=== PATIENT | male | born 1980 | race Caucasian/White ===

== ENCOUNTER 2019-03-29 14:24 | Emergency (ER) | payer OTHER, MEDICAID, SELFPAY ==
[2019-03-29 14:26] VITALS: BP 138/90; PULSE 68; RESP 16; TEMP 36.9; O2SAT 96
--- NOTE | 2019-03-29 15:53 | PC.NURSE ---
small lacerations on tip of finger x 2. Soaking currently. Not suturable. No active bleeding. Tetnus is up to date.
[2019-03-29] MEDS: BACITRACIN OINT 0.9 GM PCKT 1 APPLIC TOP (16:05)
--- NOTE | 2019-03-29 18:04 | ED.WOUNDLAC ---
HPI - Wound/Laceration <GLEN Park - Last Filed: 03/29/19 18:08> General Chief Complaint: Wound/Laceration Stated Complaint: cut on thumb l hand,right hand index finger Time Seen by Provider: 03/29/19 15:18 Source: patient Mode of arrival: Ambulatory Limitations: no limitations History of Present Illness HPI narrative: The patient is a 38-year-old male nonsmoker with history of a nickel allergy who presents with chief complaint of lacerations on his left thumb and right index finger. 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 He denies any active bleeding, but states he had a hard time getting it to stop. His tetanus is up-to-date. He states that his laceration seem rather shallow. He states that he has full range of motion of all fingers Related Data Home Medications Medication Instructions Recorded Confirmed No Known Home Medications 03/29/19 03/29/19 Allergies Allergy/AdvReac Type Severity Reaction Status Date / Time nickel [NICKEL] Allergy Unknown Unverified 08/06/17 12:08 Review of Systems <GLEN Park - Last Filed: 03/29/19 18:08> Review of Systems Narrative: GENERAL: Denies chills, fatigue, malaise, fever, sweats. HEENT: Denies sinus pain, ear pain, sore throat, difficulty swallowing, dizziness. RESPIRATORY: Denies dyspnea, cough, wheezing, hemoptysis, sputum. CARDIOVASCULAR: Denies chest pain, palpitations, orthopnea, edema, GASTROINTESTINAL: Denies nausea, vomiting, abdominal pain, diarrhea, constipation, melena. : Denies dysuria, frequency, incontinence, hematuria, urinary retention. MUSCULOSKELETAL: denies weakness, joint pain, or bony pain SKIN: See HPI NEUROLOGIC: Denies weakness, headache, numbness, change in speech, confusion, seizures, incoordination. PSYCHIATRIC: No concerning psychosocial issues. 12 point review of systems is negative except for those stated above Patient History <GLEN Park - Last Filed: 03/29/19 18:08> Family History (Updated 01/12/16 @ 00:00 by Freedom Blair RN) Sister Age: 39 Thyroid trouble Exam <GLEN Park - Last Filed: 03/29/19 18:08> Narrative Exam Narrative: GENERAL: This is a well-nourished, well-developed patient, in no acute distress HEAD: Atraumatic. Normocephalic. No temporal or scalp tenderness. EYES: Pupils equal round and reactive. Extraocular motions intact. No scleral icterus. No injection or drainage. ENT: Nose without bleeding, purulent drainage or septal hematoma. Throat without erythema, tonsillar hypertrophy or exudate. Uvula midline. Airway patent. NECK: Trachea midline. No JVD or lymphadenopathy. Supple, nontender, no meningeal signs. CARDIOVASCULAR: Regular rate and rhythm RESPIRATORY: No cough. No increased respiratory effort. No accessory muscle use. EXTREMITIES: Radial pulses intact bilaterally. Full range of motion noted bilateral fingers. Able to extend and flex left thumb and right index finger against resistance Capillary refill less than 2 seconds all fingers. BACK: Nontender without deformity or crepitance. No flank tenderness. NEURO: AOx3. SKIN: 1 cm lacerations noted at tips of left thumb and right index finger. No active bleeding. Not full thickness. Initial Vital Signs Initial Vital Signs: Vital Signs Temperature 98.5 F 03/29/19 14:26 Pulse Rate 68 03/29/19 14:26 Respiratory Rate 16 03/29/19 14:26 Blood Pressure 138/90 03/29/19 14:26 Pulse Oximetry 96 03/29/19 14:26 <Vinh Witt DO - Last Filed: 03/29/19 18:13> Initial Vital Signs Initial Vital Signs: Vital Signs Temperature 98.5 F 03/29/19 14:26 Pulse Rate 68 03/29/19 14:26 Respiratory Rate 16 03/29/19 14:26 Blood Pressure 138/90 03/29/19 14:26 Pulse Oximetry 96 03/29/19 14:26 Course <GLEN Park - Last Filed: 03/29/19 18:08> Orders Ordered: Discontinued Medications Bacitracin (Bacitracin) 1 applic TOP NOW ONE Stop: 03/29/19 15:56 Last Admin: 03/29/19 16:05 Dose: 1 applic Documented by: ZULMA Vital Signs Vital signs: Vital Signs - 8 hr 03/29/19 14:26 Temperature 98.5 F Pulse Rate 68 Respiratory Rate 16 Blood Pressure 138/90 Pulse Oximetry 96 <Vinh Witt DO - Last Filed: 03/29/19 18:13> Orders Ordered: Discontinued Medications Bacitracin (Bacitracin) 1 applic TOP NOW ONE Stop: 03/29/19 15:56 Last Admin: 03/29/19 16:05 Dose: 1 applic Documented by: ZULMA Vital Signs Vital signs: Vital Signs - 8 hr 03/29/19 14:26 Temperature 98.5 F Pulse Rate 68 Respiratory Rate 16 Blood Pressure 138/90 Pulse Oximetry 96 MDM - Wound/Laceration <DUTCH Park- - Last Filed: 03/29/19 18:08> [facility] Narrative Medical decision making narrative: The patient is a 38-year-old male presents with a chief complaint of lacerations from a broken glass at work. His tetanus is up-to-date. His wound was cleansed with chlorhexidine and dressed by nursing. He does not need sutures or repair. Discussed at length monitoring for signs and symptoms of infection such as redness pus swelling etc. Patient has no questions or concerns upon discharge and states understanding of return precautions as well as follow-up care. Discharge Plan Departure Patient Disposition: Home Clinical Impression: Laceration Discharge Date/Time: 03/29/19 16:18 Instructions: DI for Minor Laceration Activity Restrictions/Additional Instructions: Please monitor your laceration for signs and symptoms of infection such as redness and pus. Please follow up with these occur. Please come back to emergency department for any acute concerns. Please follow up with primary care provider. Prescriptions: No Action No Known Home Medications RF: 0 Referrals: Richard Cortes MD [Primary Care Provider] - Stand Alone Forms: Work Release Note <Vinh Witt DO - Last Filed: 03/29/19 18:13> Sign Out Provider Sign Out Attestation: Dr Witt Co-Sign Statement: I was available for consultation during this patient's emergency department visit. This chart is signed by myself for administrative purposes only. I did not have direct contact with this patient during this visit. They were seen independently by the APC.
== END 2019-03-29 16:18 | disposition home or self-care (01) ==
PROVIDERS: Emergency Provider Nurse Practitioner Family; PCP Family Medicine
DX: S61.012A Laceration without foreign body of left thumb without damage to nail, initial encounter (principal); S61.210A Laceration without foreign body of right index finger without damage to nail, initial encounter; W25.XXXA Contact with sharp glass, initial encounter; Y99.0 Civilian activity done for income or pay
CPT/HCPCS: 99282; 99283

== ENCOUNTER 2020-12-04 08:53 | Emergency (ER) | payer OTHER, SELFPAY ==
[2020-12-04 09:12] VITALS: BP 130/94; PULSE 58; RESP 16; TEMP 36.2; O2SAT 97; BMI 40.6
--- NOTE | 2020-12-04 09:19 | ED.LOWEXIN ---
HPI - Extremity Injury (Lower) General Chief Complaint: Extremity Injury, Lower Stated Complaint: slipped fell on knee Time Seen by Provider: 12/04/20 09:11 Source: patient Mode of arrival: Ambulatory Limitations: no limitations History of Present Illness HPI Narrative: Patient is a 40-year-old male here for evaluation of a right knee injury. He states that approximately 1 week ago while at work he tripped over a mat falling forward landing on the front of his right knee. He has been ambulatory since then. He states that the discomfort has not gotten worse but also has not improved. He has no instability in the knee. No prior injuries. No other injuries reported from the event Related Data Home Medications Medication Instructions Recorded Confirmed No Known Home Medications 03/29/19 03/29/19 Allergies Allergy/AdvReac Type Severity Reaction Status Date / Time nickel [NICKEL] Allergy Unknown Unverified 08/06/17 12:08 Review of Systems Constitutional Constitutional: Reports system reviewed and no additional complaints, except as documented Musculoskeletal Musculoskeletal: Reports system reviewed and no additional complaints, except as documented Integumentary/Breasts Skin/Breast: Reports system reviewed and no additional complaints, except as documented Neurologic Neurologic: Reports system reviewed and no additional complaints, except as documented Hematologic/Lymphatic On Anticoagulants: No Patient History Medical History Healthy adult Family History (Updated 01/12/16 @ 00:00 by Freedom Blair RN) Sister Age: 40 Thyroid trouble Social History Smoking Status: Never smoker Smoking Status: Never smoker Substance Use Type: does not use Exam Initial Vital Signs Initial Vital Signs: Vital Signs Temperature 97.2 F L 12/04/20 09:12 Pulse Rate 58 L 12/04/20 09:12 Respiratory Rate 16 12/04/20 09:12 Blood Pressure 130/94 H 12/04/20 09:12 Pulse Oximetry 97 12/04/20 09:12 Const General: cooperative and healthy appearing HENMD Head: normal to inspection and normocephalic Cardio Pulses: dorsalis pedis present on the right Skin Other: Patient with an area of bruising on the inferior patellar portion medial aspect of the right proximal tibia Neuro General: patient alert, patient awake, patient oriented x3 and moves all extremities Extrem General: normal to inspection and capillary refill normal Other: ACL MCL PCL and LCL all intact with functional testing. Patient can do a straight leg raise. No tenderness over the quadriceps tendon and patellar tendon. He does have tenderness over the bruising of the anterior portion of the knee. Psych Appearance: grossly normal and well kempt Course Vital Signs Vital signs: Vital Signs - 8 hr 12/04/20 09:12 Temperature 97.2 F L Pulse Rate 58 L Respiratory Rate 16 Blood Pressure 130/94 H Pulse Oximetry 97 MDM - Extremity Injury (Lower) MDM Narrative Medical decision making narrative: Patient has been ambulatory for the past week. He does have bruising on the anterior portion of his knee and this does seem to be the area discomfort for him. I feel that we can hold on radiologic studies for now. I have low suspicion for major ligament damage. We did discuss conservative measures. He was given return precautions. He expressed understanding and agreement. Discharge Plan Departure Patient Disposition: Home Clinical Impression: Contusion of knee, right Instructions: DI for Contusion, How To Perform RICE (Rest, Ice, Compress, Elevate) Activity Restrictions/Additional Instructions: I have low suspicion for fracture given the fact that you been walking on your leg for the past week. Also have low suspicion for major ligament injury. You do have bruising over the front of your knee. I suspect the thing should improve within the next 7-10 days. You have no restrictions on your activities. Contact your primary doctor for a follow-up. Return to the emergency department for any new or worsening symptoms Prescriptions: No Action No Known Home Medications RF: 0 Referrals: Richard Cortes MD [Primary Care Provider] -
== END 2020-12-04 09:33 | disposition home or self-care (01) ==
PROVIDERS: Emergency Provider Emergency Medicine; PCP Family Medicine
DX: S80.01XA Contusion of right knee, initial encounter (principal); W19.XXXA Unspecified fall, initial encounter; Y99.0 Civilian activity done for income or pay
CPT/HCPCS: 99281